=== PATIENT | female | born 1945 | race Caucasian/White ===

== ENCOUNTER 2024-10-01 23:55 | Inpatient (IN) | payer MEDICARE, BC ==
[2024-10-02] MEDS ORDERED: fentaNYL 50 mcg/mL 1 mL Vial ONE (00:02)
[2024-10-02] MEDS ORDERED: Fentanyl CADD 100 ML IV SCH (00:30)
[2024-10-02] MEDS ORDERED: Lorazepam 1 MG TAB ONE (01:54)
[2024-10-02] MEDS ORDERED: Lorazepam 2 MG/ML VIAL SLOW IVP PRN (01:57)
[2024-10-02] MEDS ORDERED: Glucagon 1 MG/ML KIT IM PRN (01:58)
[2024-10-02] MEDS ORDERED: Dextrose 50% Abboject 50 ML SYRINGE SLOW IVP PRN (01:58)
[2024-10-02] MEDS ORDERED: Dextrose 5% in Water 1,000 ML IV PRN (01:58)
[2024-10-02] MEDS ORDERED: Acetaminophen 650 MG Suppository PR PRN (01:59)
[2024-10-02] MEDS ORDERED: Acetaminophen 325 MG (10.15 ML) UDCUP PO PRN (01:59)
[2024-10-02] MEDS ORDERED: Electrolyte Replacement Protocol 1 EACH IVPB PRN (01:59)
[2024-10-02] MEDS ORDERED: Ventilator Sedation Protocol 1 EACH FS SCH (02:00)
[2024-10-02] MEDS ORDERED: Vasopressin In 0.9 % NaCl 40 UNIT in Premix 1 BAG IV PRN (02:08)
[2024-10-02] MEDS ORDERED: Fentanyl BOLUS 250 ML IVPB PRN (02:15)
[2024-10-02] MEDS ORDERED: Propofol BOLUS 1,000 MG/100 ML VIAL IV PRN (02:15)
[2024-10-02] MEDS ORDERED: Propofol 1,000 MG/100 ML VIAL IV PRN (02:15)
[2024-10-02] MEDS ORDERED: DISCONTINUE PREVIOUS NARCOTIC PAIN MEDICATIONS AND BENZODIAZEPINES FS SCH (02:15)
[2024-10-02] MEDS: Dexamethasone 4 mg/ml Vial SLOW IVP SCH (03:57)
[2024-10-02] MEDS: Lactated Ringer's 1,000 ML IV SCH (03:57)
[2024-10-02 04:26] VITALS: BMI 23.3
[2024-10-02 05:05] LABS: Lactic Acid 0.99 mmol/L (0.5-2.2)
[2024-10-02 05:13] LABS: Anion Gap 13 mmol/L (10-20); BUN (Urea Nitrogen) 17 mg/dL (9.8-20.1); Calc. Creatinine Clearance 69 mL/min (70-130); Carbon Dioxide 19 mmol/L (23-31); Chloride 110 mmol/L (98-107); Estimated GFR 88; Glucose 140 mg/dL (83-110); Potassium 2.4 mmol/L (3.5-5.1); Sodium 140 mmol/L (136-145)
[2024-10-02] MEDS: Potassium Chloride 40 MEQ in Sodium Chloride 0.9% 250 ML 250 ML IVPB SCH (05:47)
[2024-10-02] MEDS: levETIRAcetam 500 MG (5 mL) VIAL SLOW IVP SCH (07:41)
[2024-10-02] MEDS: Lorazepam 2 MG/ML VIAL SLOW IVP PRN (08:23)
[2024-10-02 08:46] LABS: Magnesium 1.7 mg/dL (1.6-2.6)
[2024-10-02] MEDS: Pantoprazole 40 MG VIAL IVP SCH (09:58)
[2024-10-02] MEDS: Magnesium 2 GM/50 ML(in water) 2 GM in Premix 1 BAG IVPB SCH (09:58)
[2024-10-02] MEDS ORDERED: Iopamidol-370 76% 500 ML MDV (1 ML CHARGE) ONE (11:19)
[2024-10-02] MEDS ORDERED: Magnevist 469MG/ML 20 ML VIAL ONE (11:36)
[2024-10-02 16:37] LABS: Anion Gap 12 mmol/L (10-20); BUN (Urea Nitrogen) 15 mg/dL (9.8-20.1); Calc. Creatinine Clearance 72 mL/min (70-130); Calcium 8.3 mg/dL (7.8-10.44); Carbon Dioxide 21 mmol/L (23-31); Chloride 112 mmol/L (98-107); Estimated GFR 90; Glucose 138 mg/dL (83-110); Potassium 3.3 mmol/L (3.5-5.1); Sodium 142 mmol/L (136-145)
[2024-10-02] MEDS: Potassium Chloride 20 MEQ in Premix 1 BAG IVPB SCH (17:34)
[2024-10-02] MEDS ORDERED: hydrALAZINE 20 MG/ML VIAL SLOW IVP PRN (19:42)
[2024-10-02] MEDS: hydrALAZINE 20 MG/ML VIAL SLOW IVP PRN (21:32)
[2024-10-03] MEDS: Labetalol HCl 100 MG/20 ML VIAL SLOW IVP PRN (00:18)
[2024-10-03 04:28] LABS: #Basophils Less than 0.03 10x3/uL (0.0-0.2); #Eosinophils Less than 0.03 10x3/uL (0.0-0.7); %Basophils 0.1 % (0.0-1.0); %Lymphocytes 7.4 % (21.0-51.0); %Monocytes 3.3 % (0.0-10.0); %Neutrophils 88.5 % (42.0-75.0); Hematocrit 33.3 % (36.0-47.0); Hemoglobin 10.9 g/dL (12.0-16.0); Mean Corpuscular HGB CONC 32.7 g/dL (32.0-36.0); Mean Corpuscular Hemoglobin 30.3 pg (27.0-31.0); Mean Corpuscular Volume 92.5 fL (78.0-98.0); Platelet Count 140 10x3/uL (130-400); RBC Distribution Width 13.6 % (11.5-14.5)
[2024-10-03 04:41] LABS: Phosphorus 2.6 mg/dL (2.3-4.7)
[2024-10-03 04:44] LABS: Anion Gap 12 mmol/L (10-20); BUN (Urea Nitrogen) 16 mg/dL (9.8-20.1); Calc. Creatinine Clearance 74 mL/min (70-130); Calcium 8.3 mg/dL (7.8-10.44); Carbon Dioxide 20 mmol/L (23-31); Chloride 111 mmol/L (98-107); Estimated GFR 90; Glucose 159 mg/dL (83-110); Magnesium 2.3 mg/dL (1.6-2.6); Potassium 3.5 mmol/L (3.5-5.1); Sodium 139 mmol/L (136-145)
[2024-10-03] MEDS: Potassium Chloride 20 MEQ in Premix 1 BAG IVPB SCH (10:12)
[2024-10-03] MEDS: Insulin Lispro 100 UNIT/ML 10 ML VIAL SC PRN (22:43)
[2024-10-04] MEDS: niCARdipine 25 MG in Sodium Chloride 0.9% 250 ML 250 ML IVPB PRN (02:29)
[2024-10-04 04:16] LABS: #Basophils Less than 0.03 10x3/uL (0.0-0.2); #Eosinophils Less than 0.03 10x3/uL (0.0-0.7); %Basophils 0.2 % (0.0-1.0); %Lymphocytes 6.3 % (21.0-51.0); %Monocytes 8.3 % (0.0-10.0); %Neutrophils 84.5 % (42.0-75.0); Hematocrit 32.5 % (36.0-47.0); Hemoglobin 10.7 g/dL (12.0-16.0); Mean Corpuscular HGB CONC 32.9 g/dL (32.0-36.0); Mean Corpuscular Hemoglobin 30.3 pg (27.0-31.0); Mean Corpuscular Volume 92.1 fL (78.0-98.0); Mean Platelet Volume 11.6 fL (7.4-10.4); Platelet Count 136 10x3/uL (130-400); RBC Distribution Width 14.2 % (11.5-14.5); Red Blood Cell (RBC) Count 3.53 mill/uL (4.20-5.40)
[2024-10-04 04:24] LABS: Anion Gap 12 mmol/L (10-20); BUN (Urea Nitrogen) 22 mg/dL (9.8-20.1); Calc. Creatinine Clearance 77 mL/min (70-130); Calcium 8.3 mg/dL (7.8-10.44); Carbon Dioxide 21 mmol/L (23-31); Chloride 109 mmol/L (98-107); Estimated GFR 91; Glucose 177 mg/dL (83-110); Sodium 138 mmol/L (136-145)
[2024-10-04] MEDS ORDERED: Lorazepam 2 MG/ML VIAL SLOW IVP PRN (07:24)
[2024-10-04] MEDS ORDERED: Fentanyl 100 MCG/2 ML VIAL SLOW IVP PRN (07:24)
[2024-10-04] MEDS: Aspirin 81 mg Enteric Coated Tablet PO SCH (08:24)
[2024-10-04 10:44] VITALS: BMI 25.2
[2024-10-04] MEDS: Insulin Lispro 100 UNIT/ML 10 ML VIAL SC PRN (17:43)
[2024-10-05 05:03] LABS: #Basophils Less than 0.03 10x3/uL (0.0-0.2); #Eosinophils Less than 0.03 10x3/uL (0.0-0.7); %Basophils 0.1 % (0.0-1.0); %Lymphocytes 6.1 % (21.0-51.0); %Monocytes 3.5 % (0.0-10.0); %Neutrophils 89.3 % (42.0-75.0); Hematocrit 33.5 % (36.0-47.0); Hemoglobin 11.1 g/dL (12.0-16.0); Mean Corpuscular HGB CONC 33.1 g/dL (32.0-36.0); Mean Corpuscular Hemoglobin 30.5 pg (27.0-31.0); Mean Platelet Volume 11.6 fL (7.4-10.4); Platelet Count 135 10x3/uL (130-400); RBC Distribution Width 13.9 % (11.5-14.5); Red Blood Cell (RBC) Count 3.64 mill/uL (4.20-5.40)
[2024-10-05 05:13] LABS: Anion Gap 12 mmol/L (10-20); BUN (Urea Nitrogen) 26 mg/dL (9.8-20.1); Calc. Creatinine Clearance 84 mL/min (70-130); Calcium 8.4 mg/dL (7.8-10.44); Carbon Dioxide 23 mmol/L (23-31); Chloride 112 mmol/L (98-107); Estimated GFR 91; Glucose 184 mg/dL (83-110); Potassium 4.4 mmol/L (3.5-5.1); Sodium 143 mmol/L (136-145)
[2024-10-05] MEDS ORDERED: Electrolyte Replacement Protocol FS PRN (14:15)
[2024-10-05 16:26] VITALS: BP 157/73; TEMP 98.5
== END 2024-10-05 16:28 | disposition hospice, inpatient (51) | DRG 70 ==
LOC: ERS 23:55 → CCU 10-02 00:58 → T4-A 10-04 21:00
PROVIDERS: ADMIT Student in an Organized Health Care Education/Training Program; ATTEND Family Medicine
PROC: 4A00X4Z Measurement of Central Nervous Electrical Activity, External Approach (ICD-10-PCS; principal; 2024-10-02)
PROC: 0BH17EZ Insertion of Endotracheal Airway into Trachea, Via Natural or Artificial Opening (ICD-10-PCS; 2024-10-02)
PROC: 5A1945Z Respiratory Ventilation, 24-96 Consecutive Hours (ICD-10-PCS; 2024-10-02)
DX: G93.9 Disorder of brain, unspecified (principal); G93.41 Metabolic encephalopathy; G93.6 Cerebral edema; J96.00 Acute respiratory failure, unspecified whether with hypoxia or hypercapnia; E87.20 Acidosis, unspecified; Z66 Do not resuscitate; Z51.5 Encounter for palliative care; G40.209 Localization-related (focal) (partial) symptomatic epilepsy and epileptic syndromes with complex partial seizures, not intractable, without status epilepticus; I25.10 Atherosclerotic heart disease of native coronary artery without angina pectoris; E87.6 Hypokalemia; Z79.899 Other long term (current) drug therapy
CPT/HCPCS: 36415; 36416; 70553; 71045; 71260; 74177; 76376; 80048; 83605; 83735; 84100; 85025; 94002; 94003; 94760; 96365; 96366; 96376; J0360; J1100; J1815; J1953; J2060; J2470; J3010; J3475; J3480; J7050; J7120; Q9967